=== PATIENT | male | born 1975 | race Caucasian/White ===

== ENCOUNTER 2017-04-21 17:40 | Emergency (ER) | payer OTHER ==
[2017-04-21] MEDS ORDERED: Ondansetron HCl/PF 4 MG/2 ML Vial ONE ×2 (18:14→19:28)
[2017-04-21] MEDS ORDERED: Dexamethasone 4 mg/ml Vial ONE (19:20)
[2017-04-21 19:23] LABS: #Basophils 0.1 thou/uL (0.0-0.2); #Eosinphils 0.3 thou/uL (0.0-0.7); #Lymphocytes 3.1 thou/uL (1.20-3.40); #Monocytes 0.7 thou/uL (0.11-0.59); %Basophils 1.1 % (0.0-1.0); %Eosinophils 3.5 % (0.0-10.0); %Lymphocytes 37.6 % (21.0-51.0); %Monocytes 8.8 % (0.0-10.0); %Neutrophils 48.9 % (42.0-75.0); Hemoglobin 13.2 g/dL (14.0-18.0); Mean Corpuscular Hemoglobin 26.7 pg (27.0-31.0); Mean Corpuscular Volume 83.3 fl (80.0-94.0); Mean Platelet Volume 7.4 fL (7.4-10.4); Platelet Count 319 thou/uL (130-400); RBC Distribution Width 15.4 % (11.5-14.5); Red Blood Cell (RBC) Count 4.94 mill/uL (4.70-6.10); White Blood Cell (WBC) Count 8.1 thou/uL (4.8-10.8)
[2017-04-21 19:41] LABS: ALT (SGPT) 29 U/L (8-55); AST (SGOT) 24 U/L (5-34); Albumin 4.2 g/dL (3.5-5.0); Alkaline Phosphatase 59 U/L (40-150); Anion Gap 9 mmol/L (10-20); BUN (Urea Nitrogen) 16 mg/dL (8.9-20.6); Bilirubin, Total 0.3 mg/dL (0.2-1.2); Calc. Creatinine Clearance 0 mL/min (70-130); Calcium 9.4 mg/dL (7.8-10.44); Carbon Dioxide 29 mmol/L (22-29); Chloride 103 mmol/L (98-107); Estimated GFR-MDRD 72; Globulin 3.2 g/dL (2.4-3.5); Glucose 93 mg/dL (70-105); Potassium 4.1 mmol/L (3.5-5.1); Protein, Total 7.4 g/dL (6.0-8.3); Sodium 137 mmol/L (136-145)
[2017-04-21] MEDS ORDERED: Lorazepam 2 MG/ML VIAL ONE (20:51)
--- NOTE | 2017-04-21 21:37 | MRI ---
MRI OF LUMBAR SPINE WITHOUT CONTRAST: 04/21/17 Multiplanar and multisequential imaging lumbar spine obtained. HISTORY: Cauda equina syndrome. Low back pain. Left leg pain. Feeling pressure when trying to urinate. FINDINGS: The lumbar vertebra maintain normal height and alignment. There is no evidence of vertebral body chhaya a. The disc spaces are preserved. Degenerative disc signal changes are seen at L4-5 and L5-S1. No evidence of disc bulge or disc protrusion seen at L1-2, L2-3, or L3-4 levels. At L4-5, there is an annular fissure with mild diffuse disc bulge flattening the anterior thecal sac. This does result in mild central canal stenosis. At L5-S1, there is an annular fissure with small broad based disc protrusion centrally and the left a nd abutting anterior thecal sac. This may contact the traversing left S1 nerve root. Minimal central canal stenosis with no evidence of foraminal stenosis. The conus appears normally positioned and appears unremarkable. IMPRESSION: 1. At L4-5, there is an annular fissure with broad based disc bulge resulting in mild central ca nal stenosis. 2. At L5-S1, there is an annular fissure with small protrusion to the left as described above. POS: [facility]
[2017-04-21] MEDS ORDERED: HYDROcodone/Acetaminophen 10/325 mg Tablet ONE (23:48)
== END 2017-04-22 00:08 | disposition home or self-care (01) ==
LOC: ERS 17:40
DX: M51.16 Intervertebral disc disorders with radiculopathy, lumbar region (principal); F17.220 Nicotine dependence, chewing tobacco, uncomplicated; I47.1 Supraventricular tachycardia; Z87.442 Personal history of urinary calculi
CPT/HCPCS: 72148; 80053; 85025; 96374; 96375; 96376; J1100; J2060; J2405

== ENCOUNTER 2017-08-27 18:01 | Observation (INO) | payer OTHER ==
[~2017-08-27 18:01] MED LIST: ISOVUE-370 76%-LOCM 1 ML ONE
[2017-08-27] MEDS ORDERED: Famotidine 20 MG TAB ONE (18:39)
[2017-08-27] MEDS ORDERED: Water For Inject, Bacteriostat 30 ML ONE (18:39)
[2017-08-27] MEDS ORDERED: methylPREDNISolone Sod Succ/PF 125 MG/2 ML VIAL ONE (18:39)
[2017-08-27] MEDS ORDERED: diphenhydrAMINE 50 MG/ML VIAL ONE (18:39)
[2017-08-27 20:44] LABS: Troponin I 0.012 ng/mL (< 0.028)
--- NOTE | 2017-08-27 21:04 | CT ---
CT HEAD WITH AND WITHOUT CONTRAST: CT ANGIO PERFORMED POST CONTRAST: CT ANGIO NECK: INDICATIONS: Stroke protocol. The patient was transferred from an outside institution. There is a history of a l eft facial droop. Mental status change. CT ANGIO HEAD WITHOUT CONTRAST: TECHNIQUE: Multiple axial tomograms obtained through the head without IV enhancement. This was foll owed by multiple tomograms obtained with IV enhancement, in the arterial phase, following cerebral an kym protocol, with multiplanar reconstruction and 3D post processing. FINDINGS: The ventricles have normal size and position. There is no evidence of intracranial hemorr petey. No mass. No evidence of acute cortical infarct identified on noncontrast study. The sinuses and mastoids are well aerated. There is a mucus retention cyst measuring 2.0 cm in the floor of the right maxillary antrum. IMPRESSION: No evidence of acute infarct seen on noncontrast head CT. CT ANGIO HEAD WITH CONTRAST: TECHNIQUE: Multiple axial tomograms obtained through the head with IV contrast in a cerebral angio p hase with multiplanar reconstruction and 3D post processing. FINDINGS: The intracranial internal carotid arteries are patent and symmetric. The intracranial anne ges are degraded due to motion artifact. The middle cerebral arteries appear patent. Evaluation of the M1 segments is severely degraded due to motion artifact. Both M1 segments appear patent with no definite evidence of stenosis or occlusion. The basilar artery is patent. Motion artifact degrades the proximal posterior cerebrals; however, wan th posterior cerebral arteries appear patent and symmetric. IMPRESSION: Limited study due to motion artifact. No definite proximal cerebral artery stenosis or occlusion alfa ntified. CT ANGIO NECK: TECHNIQUE: Multiple axial tomograms obtained through the neck with IV enhancement, following angio p rotocol, with multiplanar reconstruction and 3D post processing. FINDINGS: No evidence of stenosis at the origin of the arch vessels. The common carotid arteries appear unremarkable. The carotid bifurcation is unremarkable bilaterally . The extracranial internal carotid arteries are unremarkable. There is a dominant left vertebral artery. Both vertebrals are patent and unremarkable. IMPRESSION: Unremarkable CT angio neck. Findings relayed to Dr. Llamas at approximately 7:43 p.m. NIMESH WALTER POS: [facility]
[2017-08-27] MEDS ORDERED: Acetaminophen 325 MG TAB PO PRN (22:01)
[2017-08-27] MEDS ORDERED: Ondansetron ODT 4 MG TAB SL PRN (22:01)
[2017-08-27] MEDS ORDERED: Ondansetron HCl/PF 4 MG/2 ML Vial IVP PRN (22:01)
[2017-08-27 22:20] VITALS: BMI 35.2
[2017-08-27] MEDS ORDERED: tiZANidine HCl 4 MG TAB PO PRN (22:57)
[2017-08-28] MEDS ORDERED: Ondansetron HCl/PF 4 MG/2 ML Vial IVP PRN (03:03)
[2017-08-28] MEDS ORDERED: HYDROcodone/Acetaminophen 5/325 mg Tablet PO PRN ×2 (03:03)
[2017-08-28] MEDS ORDERED: Acetaminophen 325 MG TAB PO PRN (03:03)
[2017-08-28 04:41] LABS: #Lymphocytes 0.5 thou/uL (1.20-3.40); #Monocytes 0.1 thou/uL (0.11-0.59); #Neutrophils 6.3 thou/uL (1.40-6.50); %Basophils 0.4 % (0.0-1.0); %Eosinophils 0.2 % (0.0-10.0); %Monocytes 0.7 % (0.0-10.0); %Neutrophils 91.7 % (42.0-75.0); Hemoglobin 11.6 g/dL (14.0-18.0); Mean Corpuscular HGB CONC 31.4 g/dL (32.0-36.0); Mean Corpuscular Hemoglobin 25.4 pg (27.0-31.0); Mean Corpuscular Volume 80.8 fL (78.0-98.0); Mean Platelet Volume 7.4 fL (7.4-10.4); Platelet Count 318 thou/uL (130-400); RBC Distribution Width 14.7 % (11.5-14.5); Red Blood Cell (RBC) Count 4.56 mill/uL (4.70-6.10); White Blood Cell (WBC) Count 6.9 thou/uL (4.8-10.8)
[2017-08-28 04:51] LABS: Hemoglobin A1c 5.4 % (4.0-6.0)
[2017-08-28 04:54] LABS: Anion Gap 11 mmol/L (10-20); BUN (Urea Nitrogen) 14 mg/dL (8.9-20.6); Calc. Creatinine Clearance 126 mL/min (70-130); Calcium 9.4 mg/dL (7.8-10.44); Carbon Dioxide 24 mmol/L (22-29); Cardiac Risk 4.7 (Less than 4.5); Chloride 106 mmol/L (98-107); Cholesterol 219 mg/dl (< 200 Desired); Estimated GFR-MDRD 60; Glucose 229 mg/dL (70-105); HDL Cholesterol 47 mg/dL (>60 Neg Risk); LDL Cholesterol, Calculated 157 mg/dL; Magnesium 2.2 mg/dL (1.6-2.6); Potassium 4.8 mmol/L (3.5-5.1); Sodium 136 mmol/L (136-145); Triglycerides 75 mg/dL (Less than 150)
--- NOTE | 2017-08-28 08:38 | HP ---
DATE OF ADMISSION: 08/28/2017 TIME OF SERVICE: 0215 PRIMARY CARE PHYSICIAN: None. CHIEF COMPLAINT: Dizziness, "I do not feel right." HISTORY OF PRESENT ILLNESS: Mr. 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 Th e patient was in normal state of health about 24 hours prior to admission and woke up in the early mo rning of 08/27/2017 and then complaining of just not feeling like himself. He states that he was a l ittle disoriented and confused. He got up out of bed and sat there in the restroom for a little bit trying to gather his thoughts and subsequently went back to bed. When he got up later on, he was hav ing more back pain and just did not feel like himself, so he came to the emergency department for yemi luation. The patient does have a history of a herniated disk about 1-2 months ago. He has been exac erbated over the last week or so after, so he has been moving from one house to another. The back pa in is exacerbated by movement and bending, is alleviated by resting. In addition to the disorientation and just not feeling right, the patient's describes as left-si ded facial drooping as well as left arm and left leg weakness. He was really unable to lift his leg against gravity from a bed and had significant weakness in his left arm. I came into the emergency d epartment for evaluation to an outside facility where initial CT scan of the brain was negative. He was subsequently transferred to this emergency department for further evaluation where he receives mo rphine, Solu-Medrol, Benadryl, aspirin and CT angiogram that was negative for any hemodynamically sig nificant stenoses. We were subsequently called for admission for stroke. PAST MEDICAL HISTORY: 1. Renal stones every 3-4 months. 2. SVT at age 22. 3. Herniated disk for the last 1-2 months. 4. 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 PAST SURGICAL HISTORY: 1. Tonsillectomy. 2. Throat surgery x31. 3. Cardiac ablation for SVT. 4. Shrapnel removal. He still has some shrapnel that is made out of . HOME MEDICATIONS: Zanaflex 2 mg p.o. p.r.n. muscle spasm. ALLERGIES: To IV DYE. He did tolerate CT dye after Benadryl and Solu-Medrol without difficulty. FAMILY HISTORY: Significant for diabetes and stroke. SOCIAL HISTORY: Significant for snuff about 1 can per day. No IV drug use. No alcohol. He is garcía ied, monogamous. REVIEW OF SYSTEMS: All systems reviewed and negative except as stated as per HPI. PHYSICAL EXAMINATION: VITAL SIGNS: Temperature 98.4, pulse 84, blood pressure 128/75, respiratory rate 18, satting 98% on room air. GENERAL: He is awake. He is alert. He is oriented x3. He is a well-developed, well-nourished, obe se white male, who appears to be in no acute distress. HEENT: Head is normocephalic, atraumatic. His pupils are equal, round, reactive to light bilaterall y. Mucous membranes moist. No visible lesions. No thrush. NECK: Supple. There is no lymphadenopathy, JVD, or thyromegaly. He has normal carotid upstroke. T here are no bruits. LUNGS: Clear to auscultation bilaterally. No wheezes, no rales, no rhonchi. Good air movement. Sy mmetrical chest excursion. CARDIOVASCULAR: Normal S1 and S2. No S3 or S4. No audible murmurs. ABDOMEN: Soft, it is nontender, nondistended, no mass or organomegaly. EXTREMITIES: No signs of clubbing. Trace pedal edema. SKIN: Warm, moist and well perfused without rashes or lesions. MUSCULOSKELETAL: Normal to inspection. Large joints appear normal. There is no evidence of inflamm ation or palpable effusions. NEUROLOGIC: Cranial nerves II through XII were tested. He has some left-sided facial droop that is residual that includes just the central 7th peripheral nerve. His forehead is spared. He has no ton jordan or uvula deviation. He has 5/5 strength in his right upper and lower extremity. Approximately 3 /5 strength in his left upper and left lower. Sensation is intact. LABORATORY DATA: Sodium 137, potassium 3.7, chloride 104, bicarbonate 28, BUN 10, creatinine 1.2, gl ucose 93 and liver functions are normal. A CBC showed a white count of 8.7, hemoglobin 12.3, hematoc rit 37.5, platelet count 352,000. He has a normal differential. Troponin I was 0.012. IMAGING: CT angiogram of the neck was negative. CT angiogram of head is negative with some motion a rtifact. ASSESSMENT AND PLAN: 1. Possible ischemic stroke to the left brainstem area. Patient managed to take out his central 7th nerve as well as the left upper and lower extremity motor nerve. We will get an MRI of the brain wi thout contrast. Ask Neurology to see. PT, OT and ST consults have been ordered. The patient will n ot be kept n.p.o. We will continue aspirin 325 daily, and follow up with the results. 2. History of supraventricular tachycardia status post ablation. 3. History of herniated disk, stable. 4. History of papilloma of the throat. 5. Renal stones, not currently active. The patient was placed in observation.
[2017-08-28] MEDS ORDERED: Famotidine 20 MG TAB PO SCH (09:00)
[2017-08-28] MEDS ORDERED: Enoxaparin Sodium 40 MG/0.4 ML SYRINGE SC SCH (09:00)
[2017-08-28] MEDS ORDERED: Lorazepam 2 MG/ML VIAL SLOW IVP SCH (11:00)
[2017-08-28] MEDS: Ondansetron ODT 4 MG TAB PO PRN ×2 (11:50→16:28)
[2017-08-28 15:36] VITALS: BP 129/73; TEMP 98
[2017-08-28] MEDS ORDERED: Ketorolac Tromethamine 30 MG/ML VIAL IVP PRN (15:41)
--- NOTE | 2017-08-28 16:23 | MRI ---
BRAIN MRI NONCONTRAST: CLINICAL HISTORY: Left facial, arm, and leg weakness. Altered mental status. FINDINGS: There is no ventriculomegaly or midline shift. No evidence of acute territorial infarction or intrac ranial mass effect. There are no significant signal abnormalities of the brain parenchyma. Incident al note of retention cyst formation of the imaged maxillary sinuses. Skull base flow voids are maint ained. IMPRESSION: No acute intracranial abnormalities. POS: [facility]
--- NOTE | 2017-08-28 20:50 | CON ---
DATE OF CONSULTATION: 08/28/2017 NEUROLOGY CONSULTATION CONSULTING PHYSICIAN: Hospitalist service. IMPRESSION: 1. Probable complex migraine. 2. Lumbar disk disease with left leg radicular pain. PLAN: 1. Aspirin 81 mg per day. 2. The patient can be discharged to home. HISTORY OF PRESENT ILLNESS: Mr. Murray is a 42-year-old man who has had a history of sciatica in th e left leg. 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 He awoke during the night and felt somewhat disoriented. He went back to bed and got up the followin g morning and continued to have a sensation of disorientation. His thought that there was some left facial droop. He noted that his left arm was somewhat numb and heavy. He has had one more diff iculty walking than normal. He came into the hospital for evaluation. His initial CTA and CT of the brain were both unremarkable. He has had an MRI of the brain done without contrast, and there is no evidence of any acute ischemic changes as well as any history of chronic ischemic events. He has no other past medical history. He was not on any medication. ALLERGIES: IODINATED CONTRAST. SOCIAL HISTORY: He is . He has no tobacco or illicit drug use. FAMILY HISTORY: Noncontributory. REVIEW OF SYSTEMS: Positive for headache earlier today. PHYSICAL EXAMINATION: GENERAL: This is a well-nourished middle-aged man sitting in bed in no distress. VITAL SIGNS: Stable. He has been afebrile. HEENT: Pupils equal and reactive. Conjunctivae clear. Oropharynx clear. NECK: Supple. EXTREMITIES: No cyanosis, clubbing, or edema. NEUROLOGIC: He is alert and oriented. His speech is fluent and clear. Cranial nerves II-XII are in tact. Motor exam showed symmetric strength without fix or drift. He walked independently. Sensatio n was intact to light touch other than some subjective decrease in the left hand. No abnormal moveme nts were seen. EKG: Normal sinus rhythm. SUMMARY: A middle-aged man with some transient deficits on the left side, which reportedly lasted 12 hours. There is no evidence of any ischemic event based on MRI, I suspect that this is more than li balwinder a migraine phenomenon. He appears stable for discharge.
--- NOTE | 2017-08-29 02:29 | DIS ---
DATE OF ADMISSION: 08/27/2017 DATE OF DISCHARGE: 08/28/2017 DISCHARGE DIAGNOSES: 1. Complex migraine. 2. Dehydration. 3. Acute kidney injury, mild. 4. Hyperlipidemia. CONSULTATIONS: Dr. Stone with Neurology Service. PERTINENT LABORATORY AND X-RAY FINDINGS: Creatinine 1.31. Estimated GFR of 60, glucose 229. Hemogl obin A1c 5.4, magnesium 2.2, total cholesterol 219, triglycerides 75, HDL 47, LDL 157. CBC showed a white blood cell count of 6.9, hemoglobin 12, hematocrit 37, platelet count 318 with 92% neutrophilia . CT angiogram of the head and neck dated 08/27/2017 showed no evidence of focal stenosis. MRI of t he brain dated 08/28/2017 showed no acute intracranial process. HOSPITAL COURSE: Patient was observed on the telemetry unit after initially presenting with generali zed weakness with left-sided weakness and numbness. The patient underwent general TIA workup includi ng CT angiogram of the head and neck and MRI imaging of the brain. All studies were negative as stat ed previously and the patient was monitored for approximately 24 hours. Telemetry monitoring showed sinus mechanism without evidence of acute arrhythmia or dysrhythmia. The patient was noted with a mi ld dehydration with recommendations for increased oral hydration. The patient was also noted with mi ld hyperlipidemia with recommendations for dietary modification as well as regular exercise routine. The patient was evaluated by the Neurology Service due to symptoms of left-sided weakness and numbne ss and diagnosed with complex migraine. The patient was recommended for daily low dose aspirin thera py and general supportive measures. I have examined the patient at the time of discharge and discuss ed followup instructions as well as pertinent lab and radiographic studies. Patient verbalizes his u nderstanding and agreement ready for discharge on 08/28/2017. DISCHARGE MEDICATIONS: 1. Enteric coated aspirin 81 mg 1 tab p.o. daily. 2. Zanaflex 4 mg p.o. every 6 hours p.r.n. 3. Advil 400 mg p.o. q.6 hours p.r.n. FOLLOWUP: Patient to follow up an established care with Dr. Carlos Linton and to call his office fo r appointment time and date. CONDITION ON DISCHARGE: Stable. ACTIVITY: Ad byron. DIET: Heart healthy. CODE STATUS: FULL. DISPOSITION: Home, 08/28/2017.
== END 2017-08-28 18:46 | disposition home or self-care (01) ==
LOC: ERS 18:01 → 2SW 21:34
PROVIDERS: ADMIT Family Medicine; ATTEND Family Medicine
DX: G43.809 Other migraine, not intractable, without status migrainosus (principal); E86.0 Dehydration; N17.9 Acute kidney failure, unspecified; E78.5 Hyperlipidemia, unspecified; F17.290 Nicotine dependence, other tobacco product, uncomplicated; M51.16 Intervertebral disc disorders with radiculopathy, lumbar region; Z87.442 Personal history of urinary calculi; Z91.041 Radiographic dye allergy status; Z98.890 Other specified postprocedural states
CPT/HCPCS: 36415; 70496; 70498; 70551; 80048; 80061; 83036; 83735; 84484; 85025; 93005; 94760; 96372; 96374; 96375; A4216; G0378; G8978-GP-CJ; G8979-GP-CJ; G8980-GP-CJ; J1200; J1650; J1885; J2060; J2270; J2930; Q0162

== ENCOUNTER 2018-06-15 13:04 | Emergency (ER) | payer OTHER, SELFPAY ==
[2018-06-15] MEDS ORDERED: Pantoprazole 40 MG VIAL ONE (14:12)
[2018-06-15] MEDS ORDERED: Ondansetron PF 4 MG/2 ML Vial ONE (14:12)
[2018-06-15] MEDS ORDERED: Ketorolac Tromethamine 30 MG/ML VIAL ONE (14:12)
[2018-06-15 14:19] LABS: #Basophils 0.1 thou/uL (0.0-0.2); #Eosinphils 0.3 thou/uL (0.0-0.7); #Lymphocytes 2.1 thou/uL (1.20-3.40); #Monocytes 0.7 thou/uL (0.11-0.59); #Neutrophils 4.8 thou/uL (1.40-6.50); %Basophils 0.9 % (0.0-1.0); %Eosinophils 3.2 % (0.0-10.0); %Lymphocytes 26.5 % (21.0-51.0); %Monocytes 8.8 % (0.0-10.0); %Neutrophils 60.5 % (42.0-75.0); Hemoglobin 10.9 g/dL (14.0-18.0); Mean Corpuscular HGB CONC 29.9 g/dL (32.0-36.0); Mean Corpuscular Hemoglobin 22.3 pg (27.0-31.0); Mean Corpuscular Volume 74.7 fL (78.0-98.0); Mean Platelet Volume 7.8 fL (7.4-10.4); Platelet Count 424 thou/uL (130-400); RBC Distribution Width 16.1 % (11.5-14.5); Red Blood Cell (RBC) Count 4.87 mill/uL (4.70-6.10); White Blood Cell (WBC) Count 7.9 thou/uL (4.8-10.8)
[2018-06-15] MEDS ORDERED: Lidocaine 2% Viscous Solution 20 ML, Aluminum & Magnesium Hydroxide 30 ML, Donnatal Eli... SSW SCH (14:30)
[2018-06-15 14:33] LABS: ALT (SGPT) 22 U/L (8-55); AST (SGOT) 17 U/L (5-34); Albumin 4.3 g/dL (3.5-5.0); Alkaline Phosphatase 71 U/L (40-150); Anion Gap 10 mmol/L (10-20); BUN (Urea Nitrogen) 7 mg/dL (8.9-20.6); Bilirubin, Total 0.3 mg/dL (0.2-1.2); Calc. Creatinine Clearance 0 mL/min (70-130); Calcium 9.1 mg/dL (7.8-10.44); Carbon Dioxide 26 mmol/L (22-29); Chloride 104 mmol/L (98-107); Estimated GFR-MDRD 72; Globulin 3.1 g/dL (2.4-3.5); Glucose 87 mg/dL (70-105); Lipase 15 U/L (8-78); Potassium 4.4 mmol/L (3.5-5.1); Protein, Total 7.4 g/dL (6.0-8.3); Sodium 136 mmol/L (136-145)
[2018-06-15 14:52] LABS: Anisocytosis SLIGHT = 6-15 cells (100X) (0-5/hpf); Howell Jolly Bodies SLIGHT = 1-2 cells (100X) (None Seen); Hypochromia SLIGHT = 6-15 cells (100X) (0-5/hpf); MDiff Complete? YES; Microcytosis SLIGHT = 6-15 cells (100X) (0-5/hpf); Platelet Morphology Comment Appears Increased; Polychromasia SLIGHT = 2-3 cells (100X) (0-2/hpf); Stomatocytes SLIGHT = 2-5 cells (100X) (0-1/hpf); Target Cells SLIGHT = 2-5 cells (100X) (0-1/hpf)
== END 2018-06-15 16:01 | disposition home or self-care (01) ==
LOC: ERS 13:04
DX: K29.70 Gastritis, unspecified, without bleeding (principal); Z86.73 Personal history of transient ischemic attack (TIA), and cerebral infarction without residual deficits; F41.9 Anxiety disorder, unspecified; F17.220 Nicotine dependence, chewing tobacco, uncomplicated
CPT/HCPCS: 80053; 83690; 85025; 96361; 96374; 96375; C9113; J1885; J2405

== ENCOUNTER 2018-07-16 10:00 | Emergency (ER) | payer OTHER ==
[2018-07-16 10:44] LABS: #Basophils 0.1 thou/uL (0.0-0.2); #Eosinphils 0.2 thou/uL (0.0-0.7); #Monocytes 0.6 thou/uL (0.11-0.59); #Neutrophils 3.2 thou/uL (1.40-6.50); %Eosinophils 3.4 % (0.0-10.0); %Lymphocytes 32.5 % (21.0-51.0); %Monocytes 10.2 % (0.0-10.0); Hemoglobin 10.6 g/dL (14.0-18.0); Mean Corpuscular HGB CONC 29.9 g/dL (32.0-36.0); Mean Corpuscular Volume 73.4 fL (78.0-98.0); Mean Platelet Volume 7.6 fL (7.4-10.4); Platelet Count 382 thou/uL (130-400); RBC Distribution Width 15.2 % (11.5-14.5); Red Blood Cell (RBC) Count 4.84 mill/uL (4.70-6.10)
[2018-07-16] MEDS ORDERED: ISOVUE-370 76%-LOCM 1 ML ONE (10:57)
[2018-07-16 10:58] LABS: ALT (SGPT) 28 U/L (8-55); AST (SGOT) 17 U/L (5-34); Albumin 4.4 g/dL (3.5-5.0); Alkaline Phosphatase 64 U/L (40-150); Anion Gap 9 mmol/L (10-20); BUN (Urea Nitrogen) 9 mg/dL (8.9-20.6); Bilirubin, Total 0.3 mg/dL (0.2-1.2); Calc. Creatinine Clearance 0 mL/min (70-130); Calcium 9.3 mg/dL (7.8-10.44); Carbon Dioxide 27 mmol/L (22-29); Chloride 105 mmol/L (98-107); Estimated GFR-MDRD 61; Globulin 3.1 g/dL (2.4-3.5); Glucose 98 mg/dL (70-105); Lipase 11 U/L (8-78); Potassium 4.2 mmol/L (3.5-5.1); Protein, Total 7.5 g/dL (6.0-8.3); Sodium 137 mmol/L (136-145)
[2018-07-16] MEDS ORDERED: Famotidine/PF 20 mg/2ml Vial ONE (11:01)
[2018-07-16] MEDS ORDERED: methylPREDNISolone Sod Succ/PF 125 MG/2 ML VIAL ONE (11:01)
[2018-07-16] MEDS ORDERED: diphenhydrAMINE 50 MG/ML VIAL ONE (11:01)
[2018-07-16 12:18] LABS: Bilirubin Negative (Negative); Blood, Urine Negative (Negative); Clarity CLEAR (Clear); Glucose, Urine (Dipstick) Negative (Negative); Leukocyte Negative (Negative); Nitrite Negative (Negative); Protein, Urine (Dipstick) Negative (Neg-Trace); Specific Gravity, Urine 1.021 (1.002-1.036); Urobilinogen 0.2 mg/dL (0.2-1.0)
--- NOTE | 2018-07-16 12:37 | CT ---
CT ABDOMEN AND PELVIS WITH IV CONTRAST: HISTORY: Abdominal pain. FINDINGS: Comparison is made with the CTA of 10/16/2017. FINDINGS: There is a calcified granuloma in the right lower lobe. A hiatal hernia is again seen. The liver, s pleen, pancreas, adrenal glands, and kidneys are normal. No calcified gallstones are seen. No free air, free fluid, or lymphadenopathy is noted in the abdomen or pelvis. There is no evidence of aneurysmal dilatation of the abdominal aorta. No acute osseous abnormalities are seen. A normal- appearing appendix is present. The small bowel loops are not abnormally dilated. There is sigmoid d iverticulosis without diverticulitis. The prostate is mildly enlarged. IMPRESSION: 1. Sigmoid diverticulosis without diverticulitis. 2. Mild prostatic enlargement. 3. Hiatal hernia. POS: [facility]
== END 2018-07-16 13:09 | disposition home or self-care (01) ==
LOC: ERS 10:00
DX: K44.9 Diaphragmatic hernia without obstruction or gangrene (principal); K21.9 Gastro-esophageal reflux disease without esophagitis; Z86.73 Personal history of transient ischemic attack (TIA), and cerebral infarction without residual deficits; F41.9 Anxiety disorder, unspecified; Z79.899 Other long term (current) drug therapy
CPT/HCPCS: 36415; 74177; 80053; 81003; 83690; 85025; 96361; 96374; 96375; J1200; J2930; Q9966; S0028

== ENCOUNTER 2018-07-31 09:25 | Day surgery (SDC) | payer OTHER ==
[2018-07-30 14:41] VITALS: BMI 33.6
--- NOTE | 2018-08-01 00:29 | OP ---
DATE OF PROCEDURE: 07/31/2018 PROCEDURES PERFORMED: EGD with colonoscopy. PREOPERATIVE DIAGNOSES: 1. Microcytic anemia. 2. Epigastric pain. POSTOPERATIVE DIAGNOSES: 1. A 7-cm hiatal hernia extending from the hiatus at 42 cm from incisor orifice to the proximal aspect of the gastric folds and the GE junction was at 35 cm. No evidence of Castro's esophagus. This is a sliding-type hiatal hernia with no erosions or signs of bleeding. 2. Normal stomach otherwise and small bowel; biopsies taken to rule out celiac in light of microcytic anemia. 3. Normal ileal colonoscopy except for a few scattered diverticula with no signs of diverticulitis or polyps. RECOMMENDATIONS: 1. Continue PPI therapy. 2. Iron supplementation. 3. Repeat H and H in 4 weeks. 4. Follow up in my office in 6 weeks. 5. Recommended stopping using tobacco that may help his reflux. Recommended weight loss, a low carb diet, not eating late. DESCRIPTION OF PROCEDURE: After the patient was informed of the risks, benefits, and possible complications of endoscopy including perforation, reaction to medication, aspiration, and informed consent was obtained. The patient was brought to endoscopy suite, where he was sedated in gradual fashion. The endoscope was advanced through the esophagus, stomach, and second and third portions of the duodenum. A fairly large 7 cm sliding-type hiatal hernia was identified. No evidence of Duc's ulcers or erosions. The GE junction was normal with no signs of Castro's. The distal esophagus was normal. The stomach was entered and found to be normal in forward and retroflexed views except for the hernia. The pylorus was entered and found to be normal as was the duodenum in the 2nd and 3rd portions. Random biopsies were taken from the duodenum to rule out celiac as the possible cause for iron deficiency. The scope was then removed. The patient was returned to the room and rectal examination was performed, which was normal. The endoscope was advanced into the anal canal through the colon of the cecum, which identified by ileocecal valve and appendiceal orifice. The terminal ileum was normal. The entire colon was normal. Retroflexed views in the rectum were normal. The scope was removed. The patient tolerated the procedure well, no complications. Job ID: [id number]
== END 2018-07-31 18:12 | disposition home or self-care (01) ==
LOC: SDC 09:25
PROVIDERS: ATTEND Internal Medicine Gastroenterology
PROC: 0DB98ZX Excision of Duodenum, Via Natural or Artificial Opening Endoscopic, Diagnostic (ICD-10-PCS; principal; 2018-07-31)
PROC: 0DJD8ZZ Inspection of Lower Intestinal Tract, Via Natural or Artificial Opening Endoscopic (ICD-10-PCS; principal; 2018-07-31)
DX: K21.9 Gastro-esophageal reflux disease without esophagitis (principal); K44.9 Diaphragmatic hernia without obstruction or gangrene; D50.9 Iron deficiency anemia, unspecified; F17.290 Nicotine dependence, other tobacco product, uncomplicated; Z79.899 Other long term (current) drug therapy
CPT/HCPCS: 88305

== ENCOUNTER 2018-09-21 07:41 | Outpatient (CLI) | payer OTHER ==
--- NOTE | 2018-09-21 10:01 | MRI ---
MRI OF THE LUMBAR SPINE PERFORMED WITHOUT CONTRAST ENHANCEMENT: HISTORY: Low back pain. Pain radiating down bilateral legs with right foot tingling. COMPARISON: A 04/21/2017 study. FINDINGS: Vertebral bodies are normal in height. Disk space height appears well maintained with disk desiccati on changes at the L4-5 and L5-S1 levels. There is no significant periaortic adenopathy and the visual ized portions of the kidneys appear unremarkable. T12-L1: Unremarkable. L1-2: Unremarkable. L2-3: Unremarkable. L3-4: Unremarkable. L4-5: There is a disk bulge which is minimal at this level. The annular disk tear seen on the previ ous exam is more difficult to appreciate, although there still appears to be a small central annular tear. Facet and ligamentous hypertrophic changes are associated with a mild degree of canal stenosis . No foraminal narrowing. L5-S1. There is a disk bulge at this level. There is an annular disk tear which is more central in location. The disk changes are slightly more left paracentral but less prominent than they were on t he prior exam. IMPRESSION: 1. Disk bulge with facet and ligamentous hypertrophic changes at L4-5 associated with a mild degree of canal stenosis. 2. Central annular disk tear at L5-S1. The left paracentral disk protrusion seen on the prior exami nation is less prominent with only some minimal left-sided asymmetry and minimal indentation on the t hecal sac at this level. POS: [facility]
--- NOTE | 2018-09-21 10:03 | RAD ---
LUMBAR SPINE SERIES 4 VIEWS WITH FLEXION AND EXTENSION: HISTORY: Back pain and leg pain. Vertebral bodies are normal in height. Disk space height appears well preserved. No abnormal motion in flexion or extension. Pedicles appear intact. Minimal scoliotic change convex to the left is se en. IMPRESSION: No significant disk narrowing or signs of spondylolisthesis. POS: [facility]
== END 2018-09-21 07:42 | disposition home or self-care (01) ==
LOC: BICMRI 07:41
PROVIDERS: ATTEND Otolaryngology
DX: M47.26 Other spondylosis with radiculopathy, lumbar region (principal); M54.5 Low back pain; M46.1 Sacroiliitis, not elsewhere classified; M48.061 Spinal stenosis, lumbar region without neurogenic claudication; M51.16 Intervertebral disc disorders with radiculopathy, lumbar region; M51.17 Intervertebral disc disorders with radiculopathy, lumbosacral region
CPT/HCPCS: 72110; 72148

== ENCOUNTER 2019-08-25 02:45 | Observation (INO) | payer SELFPAY ==
[2019-08-25 03:43] VITALS: BMI 35.8
[2019-08-25] MEDS ORDERED: cloNIDine 0.1 MG TAB PO PRN (04:33)
[2019-08-25] MEDS ORDERED: hydrALAZINE 20 MG/ML VIAL SLOW IVP PRN (04:33)
[2019-08-25] MEDS ORDERED: Labetalol HCl 100 MG/20 ML VIAL SLOW IVP PRN (04:33)
[2019-08-25] MEDS ORDERED: Promethazine HCl 12.5 MG in Sodium Chloride 0.9% 50 ML IVPB PRN (04:33)
[2019-08-25] MEDS ORDERED: Guaifenesin DM 100-10/5 ML UDCUP PO PRN (04:33)
--- NOTE | 2019-08-25 04:36 | PDOC.HHP ---
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 PAtient began to feel lightheaded today around 1600, had syncopal episode, friend checked his blood sugar and was 56, no known history of DM, ate something and felt better after, he had lightheadedness and persistent headache and went to [facility], there found to have fever 100.8. He has history of anemia and has had EGD colonoscopy with Dr Booth 7 months ago reported normal. He had hgb 6.8 here, no clinical bleeding. COVID swab performed and negative. Met sepsis criteria, given fluids, abx vanc and zosyn, cultures drawn, sent to [facility] for further evaluation and management.FOBT negative, normal lactic acid and UA. CXR without pneumonia. he has chronic lower back pain which may be a bit worse than baseline. requests pain medications. Hospitalist ROS - Review of Systems Constitutional: reports: fever, chills, weakness, malaise, other (syncope, headache) Eyes: denies: pain, vision change, conjunctivae inflammation, eyelid inflammation, redness, other ENT: denies: ear pain, ear discharge, nose pain, nose discharge, nose congestion , mouth pain, mouth swelling, throat pain, throat swelling, other Respiratory: denies: cough, dry, shortness of breath, hemoptysis, SOB with excertion, pleuritic pain, sputum, wheezing, other Cardiovascular: reports: light headedness. denies: chest pain, palpitations, orthopnea, paroxysmal noc. dyspnea, edema, other Gastrointestinal: denies: nausea, vomiting, abdominal pain, diarrhea, constipation, melena, hematochezia, other Genitourinary: denies: dysuria, frequency, incontinence, hematuria, retention, other Musculoskeletal: reports: back pain. 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 chronic low back pain - Past Surgical History Other Surgical History: tonsillectomy - Family History Family History: reports: no pertinent history - Social History Alcohol: reports: Rare Drugs: reports: marijuana - Exam General Appearance: NAD, awake alert Eye: PERRL, anicteric sclera ENT: normocephalic atraumatic, no oropharyngeal lesions, moist mucosa Neck: supple, symmetric, no JVD, no thyromegaly, no lymphadenopathy, no carotid bruit Heart: RRR, no murmur, no gallops, no rubs, normal peripheral pulses Respiratory: CTAB, no wheezes, no rales, no ronchi, normal chest expansion, no tachypnea, normal percussion Gastrointestinal: soft, non-tender, non-distended, normal bowel sounds, no palpable masses, no hepatomegaly, no splenomegaly, no bruit Extremities: no cyanosis, no clubbing, no edema Skin: normal turgor, no lesions, no rashes Neurological: cranial nerve grossly intact, normal sensation to touch, no weakness, no focal deficits, no new deficit Musculoskeletal: normal tone, normal strength, no muscle wasting Psychiatric: normal affect, normal behavior, A&O x 3 Hospitalist Results - Labs Lab results: reviewed, see HPI and outside records for pertinent positives and negatives. 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 PAtient began to feel lightheaded today around 1600, had syncopal episode, friend checked his blood sugar and was 56, no known history of DM, ate something and felt better after, he had lightheadedness and persistent headache and went to [facility], there found to have fever 100.8. He has history of anemia and has had EGD colonoscopy with Dr Booth 7 months ago reported normal. He had hgb 6.8 here, no clinical bleeding. COVID swab performed and negative. Met sepsis criteria, given fluids, abx vanc and zosyn, cultures drawn, sent to [facility] for further evaluation and management.FOBT negative, normal lactic acid and UA. CXR without pneumonia. he has chronic lower back pain which may be a bit worse than baseline. - had negative covid screen will redraw blood cultures, will order resp viral PCR, monitor off of abx - observe on telemetry, orthostatic vital signs # anemia - acute and chronic, had negative endoscopies with Dr Perez 7 months ago, no clinical bleeding # hypoglycemia - no history of DM will place on D5 1/2 NS and order AC/HS checks DVT/GI ppx full code
[2019-08-25] MEDS: HYDROcodone/Acetaminophen 5/325 mg Tablet PO PRN ×3 (04:46→20:59)
[2019-08-25 05:16] LABS: Bilirubin Negative (Negative); Blood, Urine Negative (Negative); Clarity Clear (Clear); Glucose, Urine (Dipstick) Normal (Negative); Leukocyte Negative Leu/uL (Negative); Nitrite Negative (Negative); Protein, Urine (Dipstick) Negative (Neg-Trace); RBC/HPF 0-3 HPF (0-3); Squamous Epithelial 0-3 HPF (0-3); Urobilinogen Normal mg/dL (Less than 2); WBC/HPF 0-3 HPF (0-3)
[2019-08-25 05:27] LABS: Bacteria/HPF None Seen HPF (None Seen)
[2019-08-25 05:28] LABS: Urine Culture Reflex No No
[2019-08-25] MEDS ORDERED: HumaLOG 300 UNITS/3 ML VIAL SC PRN (06:30)
[2019-08-25] MEDS ORDERED: Dextrose 5% in Water 1,000 ML IV PRN (06:30)
[2019-08-25] MEDS ORDERED: Dextrose 50% Abboject 50 ML SYRINGE SLOW IVP PRN (06:30)
[2019-08-25 06:38] LABS: #Basophils 0.1 thou/uL (0.0-0.2); #Eosinphils 0.2 thou/uL (0.0-0.7); #Lymphocytes 2.8 thou/uL (1.20-3.40); #Monocytes 0.5 thou/uL (0.11-0.59); #Neutrophils 2.7 thou/uL (1.40-6.50); %Eosinophils 3.3 % (0.0-10.0); %Lymphocytes 43.9 % (21.0-51.0); %Monocytes 8.4 % (0.0-10.0); %Neutrophils 43.3 % (42.0-75.0); Hemoglobin 6.2 g/dL (14.0-18.0); Mean Corpuscular HGB CONC 27.4 g/dL (32.0-36.0); Mean Corpuscular Hemoglobin 17.4 pg (27.0-31.0); Mean Corpuscular Volume 63.4 fL (78.0-98.0); Mean Platelet Volume 9.3 fL (7.4-10.4); Platelet Count 450 thou/uL (130-400); RBC Distribution Width 16.4 % (11.5-14.5); Red Blood Cell (RBC) Count 3.56 mill/uL (4.70-6.10); Reflex for Review?? NO; White Blood Cell (WBC) Count 6.3 thou/uL (4.8-10.8)
[2019-08-25 06:41] LABS: INR-International Normal Ratio 1.1; PTT 26.5 sec (22.9-36.1); Prothrombin Time 13.8 sec (12.0-14.7)
[2019-08-25 06:57] LABS: Albumin 3.7 g/dL (3.5-5.0); Anion Gap 10 mmol/L (10-20); BUN (Urea Nitrogen) 7 mg/dL (8.9-20.6); Bilirubin, Total 0.3 mg/dL (0.2-1.2); Calc. Creatinine Clearance 139 mL/min (70-130); Calcium 8.1 mg/dL (7.8-10.44); Carbon Dioxide 24 mmol/L (22-29); Chloride 109 mmol/L (98-107); Estimated GFR-MDRD 67; Glucose 94 mg/dL (70-105); Potassium 3.9 mmol/L (3.5-5.1); Protein, Total 6.1 g/dL (6.0-8.3); Sodium 139 mmol/L (136-145)
[2019-08-25 06:58] LABS: ALT (SGPT) 18 U/L (8-55); AST (SGOT) 14 U/L (5-34); Alkaline Phosphatase 48 U/L (40-110); Globulin 2.4 g/dL (2.4-3.5)
[2019-08-25] MEDS: Acetaminophen 325 MG TAB PO PRN ×4 (07:57→21:00)
[2019-08-25] MEDS: Morphine 2 MG/ML SYRINGE SLOW IVP PRN ×2 (07:57→16:38)
[2019-08-25] MEDS: Ondansetron PF 4 MG/2 ML Vial IVP PRN (08:03)
[2019-08-25] MEDS: Dextrose 5 %-0.45 % NaCl 1,000 ML IV SCH ×2 (08:03→20:58)
[2019-08-25] MEDS ORDERED: Famotidine 20 MG TAB PO SCH (09:00)
[2019-08-25] MEDS: Polyethylene Glycol 3350 17 GM Packet PO SCH (09:10)
[2019-08-25] MEDS: Enoxaparin Sodium 40 MG/0.4 ML SYRINGE SC SCH (09:10)
[2019-08-25] MEDS ORDERED: Pantoprazole 40 MG VIAL IVP SCH (13:30)
[2019-08-25 15:16] LABS: Iron 10 ug/dL (65-175); Iron Binding Capacity, Total 370 mcg/dL (261-462)
[2019-08-25] MEDS: Pantoprazole 40 MG VIAL IVP SCH (20:59)
[2019-08-25] MEDS ORDERED: Prevnar 13-Val Conj/PF 0.5 ML SYRINGE IM ONE (21:00)
[2019-08-25 21:32] LABS: Hemoglobin 7.5 g/dL (14.0-18.0)
[2019-08-25] MEDS ORDERED: Vancomycin 1 GM in Premix Bag 1 BAG IVPB ONE (23:22)
[2019-08-26] MEDS: HYDROcodone/Acetaminophen 5/325 mg Tablet PO PRN ×4 (04:01→19:21)
[2019-08-26 04:41] LABS: #Basophils 0.1 thou/uL (0.0-0.2); #Eosinphils 0.4 thou/uL (0.0-0.7); #Lymphocytes 2.8 thou/uL (1.20-3.40); #Monocytes 0.6 thou/uL (0.11-0.59); %Basophils 0.8 % (0.0-1.0); %Lymphocytes 35.2 % (21.0-51.0); %Monocytes 7.9 % (0.0-10.0); Hemoglobin 7.4 g/dL (14.0-18.0); Mean Corpuscular HGB CONC 27.8 g/dL (32.0-36.0); Mean Corpuscular Hemoglobin 18.3 pg (27.0-31.0); Mean Corpuscular Volume 65.9 fL (78.0-98.0); Mean Platelet Volume 9.2 fL (7.4-10.4); Platelet Count 462 thou/uL (130-400); RBC Distribution Width 18.5 % (11.5-14.5); Red Blood Cell (RBC) Count 4.02 mill/uL (4.70-6.10); White Blood Cell (WBC) Count 7.9 thou/uL (4.8-10.8)
[2019-08-26 04:52] LABS: Anion Gap 8 mmol/L (10-20); BUN (Urea Nitrogen) 6 mg/dL (8.9-20.6); Calc. Creatinine Clearance 133 mL/min (70-130); Calcium 8.1 mg/dL (7.8-10.44); Carbon Dioxide 27 mmol/L (22-29); Chloride 108 mmol/L (98-107); Estimated GFR-MDRD 64; Glucose 86 mg/dL (70-105); Magnesium 2.2 mg/dL (1.6-2.6); Potassium 3.9 mmol/L (3.5-5.1); Sodium 139 mmol/L (136-145)
[2019-08-26] MEDS ORDERED: Ferrous Sulfate 325 MG TAB PO SCH (08:15)
--- NOTE | 2019-08-26 08:16 | PDOC.HOSPP ---
- Subjective Encounter Date: 08/26/19 Encounter Time: 11:30 Subjective: Patient feeling a bit weak and achy. No other current complaints. No fever right now. - Objective Vital Signs & Weight: Vital Signs (12 hours) Temp Pulse Resp BP Pulse Ox 08/26/19 04:00 97.7 F 75 16 129/79 97 08/25/19 23:35 98.6 F 72 18 127/69 97 Weight Weight 271 lb 4.8 oz I&O: 08/25/19 08/26/19 08/27/19 06:59 06:59 06:59 Intake Total 200 1850 Output Total 450 2220 Balance -250 -370 Result Diagrams: 08/26/19 04:03 08/26/19 04:03 Additional Labs: Accuchecks 08/26/19 08/25/19 08/25/19 05:10 20:13 16:48 POC Glucose 106 127 H 99 08/25/19 10:28 POC Glucose 99 Hospitalist ROS - Review of Systems Constitutional: reports: weakness. denies: chills Respiratory: denies: cough, shortness of breath Cardiovascular: denies: chest pain, palpitations, orthopnea Gastrointestinal: denies: nausea, vomiting, abdominal pain Genitourinary: denies: dysuria, hematuria - Medication Medications: Active Medications Generic Name Dose Route Start Last Admin Trade Name Freq PRN Reason Stop Dose Admin Acetaminophen 650 mg 08/25/19 04:33 08/25/19 21:00 Tylenol PO 650 mg Q4H PRN Administration Headache/Fever/Mild Pain (1-3) Hydrocodone Bitart/Acetaminophen 1 tab 08/25/19 04:33 08/26/19 04:01 [place] 5/325 PO 1 tab Q4H PRN Administration Moderate Pain (4-6) Enoxaparin Sodium 40 mg 08/25/19 09:00 08/25/19 09:10 Lovenox SC 40 mg 0900 ROSE Administration Dextrose/Sodium Chloride 1,000 mls @ 100 mls/hr 08/25/19 06:45 08/25/19 20:58 D5 1/2 Ns IV 1,000 mls .Q10H ROSE Administration Vancomycin HCl 2 gm/ Sodium 500 mls @ 250 mls/hr 08/25/19 23:59 08/25/19 23: 37 Chloride IVPB 500 mls 1200,2359 ROSE Administration Morphine Sulfate 2 mg 08/25/19 04:33 08/25/19 16:38 Morphine SLOW IVP 2 mg Q4H PRN Administration severe pain 4-10 Ondansetron HCl 4 mg 08/25/19 04:33 08/25/19 08:03 Zofran IVP 4 mg Q6H PRN Administration Nausea/Vomiting use 1st Pantoprazole Sodium 40 mg 08/25/19 21:00 08/25/19 20:59 Protonix IVP 40 mg Q12HR ROSE Administration Polyethylene Glycol 17 gm 08/25/19 09:00 08/25/19 09:10 Miralax PO 17 gm DAILY ROSE Administration - Exam General Appearance: NAD, awake alert ENT: moist mucosa Heart: RRR, no murmur, no gallops, no rubs Respiratory: CTAB, no wheezes, no rales, no ronchi Gastrointestinal: soft, non-tender, non-distended, normal bowel sounds Neurological: no focal deficits Musculoskeletal: normal tone, normal strength Psychiatric: normal affect, normal behavior, A&O x 3 Hosp A/P (1) Iron deficiency anemia Code(s): D50.9 - IRON DEFICIENCY ANEMIA, UNSPECIFIED Status: Acute Qualifiers: Iron deficiency anemia type: unspecified iron deficiency Qualified Code(s) : D50.9 - Iron deficiency anemia, unspecified (2) Sepsis Code(s): A41.9 - SEPSIS, UNSPECIFIED ORGANISM Status: Resolved (3) Bacteremia Code(s): R78.81 - BACTEREMIA Status: Suspected (4) Hypoglycemia Code(s): E16.2 - HYPOGLYCEMIA, UNSPECIFIED Status: Resolved - Plan Patient with 1/2 blood cultures with Gram + cocci, will need to continue Vancomycin until ID comes back, if coag neg staph likely contaminant and can d/ c abx. Iron deficiency anemia- stable after transfusion, start iron supplementation and will need GI f/u outpatient hypoglycemia resolved and no hx DM, will stop IV fluids and monitor for recurrence Viral panel negative and Covid-19 reportedly negative at [facility], suspect other viral infection as source of fever Likely home in AM if culture back as coag neg staph and no more hypoglycemia.
[2019-08-26] MEDS: Pantoprazole 40 MG VIAL IVP SCH ×2 (09:21→21:03)
[2019-08-26] MEDS: Enoxaparin Sodium 40 MG/0.4 ML SYRINGE SC SCH (09:21)
[2019-08-26] MEDS: Polyethylene Glycol 3350 17 GM Packet PO SCH (09:22)
[2019-08-26] MEDS: Ferrous Sulfate 325 MG TAB PO SCH (15:54)
[2019-08-27 06:32] LABS: #Basophils 0.1 thou/uL (0.0-0.2); #Eosinphils 0.3 thou/uL (0.0-0.7); #Lymphocytes 1.8 thou/uL (1.20-3.40); #Monocytes 0.4 thou/uL (0.11-0.59); %Basophils 1.2 % (0.0-1.0); %Eosinophils 7.1 % (0.0-10.0); %Monocytes 9.2 % (0.0-10.0); %Neutrophils 43.4 % (42.0-75.0); Hemoglobin 7.4 g/dL (14.0-18.0); Mean Corpuscular HGB CONC 29.1 g/dL (32.0-36.0); Mean Corpuscular Hemoglobin 18.8 pg (27.0-31.0); Mean Corpuscular Volume 64.8 fL (78.0-98.0); Mean Platelet Volume 9.5 fL (7.4-10.4); Platelet Count 455 thou/uL (130-400); RBC Distribution Width 18.4 % (11.5-14.5); Red Blood Cell (RBC) Count 3.92 mill/uL (4.70-6.10); White Blood Cell (WBC) Count 4.7 thou/uL (4.8-10.8)
[2019-08-27 06:51] LABS: Anion Gap 11 mmol/L (10-20); BUN (Urea Nitrogen) 7 mg/dL (8.9-20.6); Calc. Creatinine Clearance 152 mL/min (70-130); Calcium 8.5 mg/dL (7.8-10.44); Carbon Dioxide 26 mmol/L (22-29); Chloride 105 mmol/L (98-107); Estimated GFR-MDRD 74; Glucose 92 mg/dL (70-105); Potassium 3.8 mmol/L (3.5-5.1); Sodium 138 mmol/L (136-145)
[2019-08-27] MEDS: Ferrous Sulfate 325 MG TAB PO SCH (08:08)
[2019-08-27] MEDS: Enoxaparin Sodium 40 MG/0.4 ML SYRINGE SC SCH (08:10)
[2019-08-27] MEDS: Polyethylene Glycol 3350 17 GM Packet PO SCH (08:10)
[2019-08-27] MEDS: Pantoprazole 40 MG VIAL IVP SCH (08:10)
[2019-08-27] MEDS: HYDROcodone/Acetaminophen 5/325 mg Tablet PO PRN (08:11)
[2019-08-27] MEDS: Ondansetron PF 4 MG/2 ML Vial IVP PRN (08:12)
--- NOTE | 2019-08-27 08:26 | PDOC.HOSPP ---
- Subjective Encounter Date: 08/27/19 Encounter Time: 11:40 Subjective: Patient felt better last night. This AM with some headache and feeling achy all over. No bowel movement so wondering if he is getting constipated. Did take some Miralax this morning. No fever. No cough. No shortness of breath. - Objective Vital Signs & Weight: Vital Signs (12 hours) Temp Pulse Resp BP BP BP BP 08/27/19 07:50 98.2 F 75 16 124/73 130/74 136/77 08/27/19 03:30 98.2 F 83 18 123/62 Pulse Ox 08/27/19 07:50 98 08/27/19 03:30 98 Weight Weight 271 lb 4.8 oz I&O: 08/26/19 08/27/19 08/28/19 06:59 06:59 06:59 Intake Total 1850 1430 Output Total 2220 700 Balance -370 730 Result Diagrams: 08/27/19 06:16 08/27/19 06:16 Additional Labs: Accuchecks 08/27/19 08/26/19 08/26/19 05:47 20:28 15:03 POC Glucose 102 127 H 103 08/26/19 08/26/19 15:03 11:13 POC Glucose 103 123 H Hospitalist ROS - Review of Systems Constitutional: reports: malaise. denies: fever, chills, weakness Respiratory: denies: cough, shortness of breath Cardiovascular: denies: chest pain, palpitations Gastrointestinal: reports: constipation. denies: nausea, vomiting, abdominal pain, diarrhea Genitourinary: denies: dysuria, hematuria Neurological: denies: weakness - Medication Medications: Active Medications Generic Name Dose Route Start Last Admin Trade Name Freq PRN Reason Stop Dose Admin Acetaminophen 650 mg 08/25/19 04:33 08/25/19 21:00 Tylenol PO 650 mg Q4H PRN Administration Headache/Fever/Mild Pain (1-3) Hydrocodone Bitart/Acetaminophen 1 tab 08/25/19 04:33 08/27/19 08:11 [place] 5/325 PO 1 tab Q4H PRN Administration Moderate Pain (4-6) Enoxaparin Sodium 40 mg 08/25/19 09:00 08/27/19 08:10 Lovenox SC 40 mg 0900 ROSE Administration Ferrous Sulfate 325 mg 08/26/19 17:00 08/27/19 08:08 Feosol PO 325 mg BID-WM ROSE Administration Insulin Human Lispro 0 units 08/25/19 06:30 08/27/19 05:55 Humalog SC 2 unit .MILD SLIDING SCALE PRN Administration Mild Correctional Scale Morphine Sulfate 2 mg 08/25/19 04:33 08/25/19 16:38 Morphine SLOW IVP 2 mg Q4H PRN Administration severe pain 4-10 Ondansetron HCl 4 mg 08/25/19 04:33 08/27/19 08:12 Zofran IVP 4 mg Q6H PRN Administration Nausea/Vomiting use 1st Pantoprazole Sodium 40 mg 08/25/19 21:00 08/27/19 08:10 Protonix IVP 40 mg Q12HR ROSE Administration Polyethylene Glycol 17 gm 08/25/19 09:00 08/27/19 08:10 Miralax PO 17 gm DAILY ROSE Administration - Exam General Appearance: NAD, awake alert ENT: moist mucosa Neck: supple Heart: RRR, no murmur, no gallops, no rubs Respiratory: CTAB, no wheezes, no rales, no ronchi Gastrointestinal: soft, non-tender, non-distended, normal bowel sounds Psychiatric: normal affect, normal behavior, A&O x 3 Hosp A/P (1) Iron deficiency anemia Code(s): D50.9 - IRON DEFICIENCY ANEMIA, UNSPECIFIED Status: Acute Qualifiers: Iron deficiency anemia type: unspecified iron deficiency Qualified Code(s) : D50.9 - Iron deficiency anemia, unspecified (2) Sepsis Code(s): A41.9 - SEPSIS, UNSPECIFIED ORGANISM Status: Resolved (3) Bacteremia Code(s): R78.81 - BACTEREMIA Status: Ruled-out (4) Hypoglycemia Code(s): E16.2 - HYPOGLYCEMIA, UNSPECIFIED Status: Resolved - Plan Patient with 1/2 blood cultures with coag neg staph- contaminent. Abx discontinued. Iron deficiency anemia- stable after transfusion, started iron supplementation, neg GI workup previously, needs Heme/Onc outpatient hypoglycemia resolved and no hx DM, sugars well controlled off fluids overnight Viral panel negative and Covid-19 reportedly negative at [facility], suspect other viral infection as source of fever orthostatics negative Home today.
[2019-08-27 11:11] VITALS: BP 116/58; TEMP 98.5
[2019-08-27] MEDS: Morphine 2 MG/ML SYRINGE SLOW IVP PRN (11:31)
--- NOTE | 2019-08-27 23:26 | DIS ---
DATE OF ADMISSION: 08/25/2019 DATE OF DISCHARGE: 08/27/2019 PRIMARY CARE PHYSICIAN: Samir Linares MD REASON FOR ADMISSION: Sepsis and anemia. DIAGNOSES AT DISCHARGE: 1. Sepsis, resolved. 2. Viral syndrome. 3. Iron deficiency anemia. 4. Hypoglycemia, resolved. PROCEDURES PERFORMED: None. CONSULTATIONS: None. SUMMARY OF HOSPITAL COURSE: This is a 44-year-old white male with a known history of anemia for sometime though never very low. Never had transfusions. He did see Dr. Booth seven months ago and had a normal EGD and colonoscopy as a workup for his anemia. He has never had a positive Hemoccult. He reports that he had lightheadedness and syncope, went into the [facility] Emergency Room. There, he had a negative COVID test. However, he did have a hemoglobin of 6.8. The patient was also found to have a fever of 100.8 at the [facility] Emergency Room. His blood sugar at home when his friend checked it before he went to the hospital was 56. However, this resolved with eating something and he had not been eating anything for the last few days as he had felt bad. The patient came into our hospital. He met sepsis criteria. He was given fluids, antibiotics, and had cultures drawn. These grew back 1/2 coag negative staph which was though to be a contaminent. He had a fecal occult blood test that was negative. He had a normal lactic acid, negative UA and negative chest x-ray. The patient was observed in the hospital, was given IV fluids. He had resolution of all of his sepsis since he had no more fever. He did have monocytosis on his CBC, so he had a Monospot done, which was negative. The patient also had a viral nasal panel done, which was negative as well. He did have fluids running with sugar for the first day he was in the hospital, after that was discontinued. His sugars were monitored and stayed well. He was able to eat okay. He just felt achy all over and had headache on and off. The patient's had hemoglobin improved after a unit of blood in the emergency room and stayed stable in the mid 7s during his hospitalization without any evidence of further bleeding. At the time of discharge, the patient was doing well. He is being discharged home with diagnosis of iron deficiency anemia of unknown source and viral infection. DISCHARGE MANAGEMENT: Discharged home. FOLLOWUP: Follow up with Dr. Linares in three days and stressed the patient that he needs to see heme-oncologist as his GI workup has been negative for source of anemia. ACTIVITY: As tolerated. DIET: Regular diet. MEDICATIONS: 1. Acetaminophen with codeine No. 3, one tablet every 6 hours as needed for pain , 30 tablets dispensed. 2. Ferrous sulfate 325 mg twice a day, 60 tablets dispensed. 3. Ondansetron 4 mg sublingual q.6 hours as needed for nausea and vomiting, 15 tablets dispensed. 4. Senokot two tablets at night as needed for constipation, 30 tablets dispensed. Job ID: [id number] MTDD
--- NOTE | 2019-08-28 10:25 | PDOC.EVN ---
Event Note - Event Note Event Note: Patient's second set of blood cultures again grew 1/2 coag negative staph. I did call Dr. Murillo and discussed the case with him including recent single fever , prolonged anemia recently worsened, and hx of SVT ablation as a child. He stated that given that the coag neg staph is always 1/2 he thinks it is still just a contaminent. Did recommend following up with Heme/Onc as outpatient to continue workup for anemia. Called to update patient but no answer, left message on his phone.
== END 2019-08-27 14:30 | disposition home or self-care (01) ==
LOC: 2NO 03:01
PROVIDERS: ADMIT Internal Medicine; ATTEND Internal Medicine
DX: A41.89 Other specified sepsis (principal); B97.89 Other viral agents as the cause of diseases classified elsewhere; D50.9 Iron deficiency anemia, unspecified; E16.2 Hypoglycemia, unspecified; Z91.041 Radiographic dye allergy status
CPT/HCPCS: 36415; 36416; 36430; 80048; 80053; 81001; 82728; 83540; 83550; 83735; 85025; 85610; 85730; 86850; 86900; 86901; 87040; 87149; 87633; 96361; 96365; 96366; 96372; 96375; 96376; C9113; G0378; J1650; J2270; J2405; J3370; J7030; P9016